=== PATIENT | female | born 1950 | race Caucasian/White ===

== ENCOUNTER 2024-06-26 20:34 | Observation (INO) | payer OTHER ==
[~2024-06-26] VITALS: Ht 160 cm; Wt 56.7 kg
[2024-06-26] MEDS: morPHINE 2 MG SYG IVP STA (21:34)
[2024-06-26] MEDS: ondanSETRON 4MG INJ IVP STA (21:34)
[2024-06-26 21:36] LABS: BASOPHILS # (AUTO) 0.02 K/uL (0.00-0.20); BASOPHILS % (AUTO) 0.1 % (0.0-5.0); EOSINOPHILS # (AUTO) 0.01 K/uL (0.00-0.70); EOSINOPHILS % (AUTO) 0.1 % (0.0-8.0); HEMATOCRIT 42.6 % (36-48); IMMATURE GRANULOCYTE ABSOLUTE 0.06 K/uL (0-1); LYMPHOCYTES # (AUTO) 0.7 K/uL (1.0-4.8); LYMPHOCYTES % (AUTO) 5.5 % (21.0-51.0); MEAN CORPUSCULAR HEMOGLOBIN 32.3 pg (27.0-33.0); MEAN CORPUSCULAR VOLUME 94.9 fL (79-99); MONOCYTES # (AUTO) 0.6 K/uL (0.1-1.0); MONOCYTES % (AUTO) 4.4 % (3.0-13.0); NEUTROPHILS % (AUTO) 89.5 % (40.0-77.0); PLATELET COUNT (AUTO) 345 K/uL (130-400); RED BLOOD CELL COUNT(AUTO) 4.49 MIL/uL (4.00-5.50); RED CELL DISTRIBUTION WIDTH 12.4 % (11.0-15.5); WHITE BLOOD COUNT (AUTO) 13.4 K/uL (4.8-10.8)
[2024-06-26 21:51] LABS: CREATININE 2.4 mg/dL (0.5-1.0); POTASSIUM 4.2 mmol/L (3.5-5.1)
[2024-06-26 21:56] LABS: ALBUMIN 4.6 g/dL (3.5-5.0); BILIRUBIN,TOTAL 0.7 mg/dL (0.2-1.0); TOTAL PROTEIN, SERUM 7.6 g/dL (6.0-8.3)
[2024-06-26] MEDS: 0.9%NACL 1000ML 1,000 ML IV ONE (23:44)
[2024-06-27] MEDS ORDERED: acetaMINOPHEN 325 MG TAB PO PRN
[2024-06-27] MEDS ORDERED: ALBUTEROL 0.083% 2.5 MG/3 ML INH IH PRN
[2024-06-27] MEDS ORDERED: LACTULOSE 20 GM/30 ML UDCUP PO PRN
[2024-06-27] MEDS ORDERED: LAbetaLOL 20MG SYG IV PRN
[2024-06-27] MEDS ORDERED: hydrALAZine 20MG/ML VIAL IV PRN
[2024-06-27 00:57] VITALS: O2SAT 96
[2024-06-27] MEDS: 0.9%NACL 1000ML 1,000 ML IV SCH (01:00)
[2024-06-27] MEDS: ondanSETRON 4MG INJ IVP PRN (01:00)
[2024-06-27] MEDS ORDERED: LISI10TA24 PO (01:13)
[2024-06-27] MEDS ORDERED: ATOR10 PO (01:13)
[2024-06-27 02:10] VITALS: BP 136/66; PULSE 90; RESP 20; TEMP 98.5
[2024-06-27 04:00] VITALS: BP 149/59; PULSE 87; RESP 20; TEMP 99.3
[2024-06-27 05:33] LABS: BASOPHILS # (AUTO) 0.02 K/uL (0.00-0.20); BASOPHILS % (AUTO) 0.2 % (0.0-5.0); HEMATOCRIT 35.6 % (36-48); IMMATURE GRANULOCYTE ABSOLUTE 0.08 K/uL (0-1); LYMPHOCYTES # (AUTO) 1.1 K/uL (1.0-4.8); LYMPHOCYTES % (AUTO) 8.5 % (21.0-51.0); MEAN CORPUSCULAR HEMOGLOBIN 31.9 pg (27.0-33.0); MEAN CORPUSCULAR HGB CONC 33.4 g/dL (32.0-36.0); MEAN CORPUSCULAR VOLUME 95.4 fL (79-99); MONOCYTES # (AUTO) 0.7 K/uL (0.1-1.0); MONOCYTES % (AUTO) 5.2 % (3.0-13.0); NEUTROPHILS % (AUTO) 85.5 % (40.0-77.0); PLATELET COUNT (AUTO) 278 K/uL (130-400); RED BLOOD CELL COUNT(AUTO) 3.73 MIL/uL (4.00-5.50); RED CELL DISTRIBUTION WIDTH 12.4 % (11.0-15.5); WHITE BLOOD COUNT (AUTO) 12.8 K/uL (4.8-10.8)
[2024-06-27 05:41] LABS: CREATININE 2.4 mg/dL (0.5-1.0); POTASSIUM 5.4 mmol/L (3.5-5.1)
[2024-06-27] MEDS: 0.9% NACL 250ML 250 ML IV ONE (06:11)
[2024-06-27 06:39] VITALS: PULSE 101; RESP 18; O2SAT 96
[2024-06-27 07:33] LABS: APPEARANCE,URINE CLOUDY (CLEAR); BILIRUBIN,URINE NEGATIVE (NEGATIVE); COLOR,URINE YELLOW (YELLOW); GLUCOSE, URINE (UA) NEGATIVE (NEGATIVE); KETONES,URINE 40 mg/dL (NEGATIVE); LEUKOCYTE ESTERASE ,URINE 75 Leu/uL (NEGATIVE); NITRATE,URINE NEGATIVE (NEGATIVE); OCCULT BLOOD,URINE NEGATIVE (NEGATIVE); PROTEIN,URINE 20 mg/dL (NEGATIVE)
[2024-06-27 07:41] LABS: ADD UA MICROSCOPIC YES
[2024-06-27 07:44] LABS: BACTERIA,URINE RARE /HPF (None Seen); HYALINE CASTS, URINE 26-50 /LPF (0-1 /LPF); MUCUS,URINE RARE LPF (None Seen); SQUAMOUS EPITHELIAL CELL,UR RARE /HPF (0-2); TRANSITIONAL EPI CELLS,URINE RARE /HPF (None Seen)
[2024-06-27 08:25] LABS: CREATININE 2.2 mg/dL (0.5-1.0); POTASSIUM 4.7 mmol/L (3.5-5.1)
[2024-06-27 11:43] VITALS: BP 146/74; PULSE 95; RESP 18; TEMP 98.4
[2024-06-27 15:20] VITALS: BP 150/66; PULSE 94; RESP 18; TEMP 97.6
[2024-06-27] MEDS: INSULIN humuLIN R 100 UNIT/ML 3ML SQ STA (17:26)
[2024-06-28] MEDS ORDERED: ENOXAPARIN SODIUM 40 MG/0.4 ML SYRINGE SQ SCH (09:00)
== END 2024-06-27 18:55 | disposition home or self-care (01) ==
LOC: EDH 20:34 → EDHIP 23:55 → 4CH 06-27 00:37
PROVIDERS: ADMIT Internal Medicine Critical Care Medicine; ATTEND Internal Medicine Critical Care Medicine
DX: M48.56XA Collapsed vertebra, not elsewhere classified, lumbar region, initial encounter for fracture (principal); N30.00 Acute cystitis without hematuria; N17.9 Acute kidney failure, unspecified; I12.9 Hypertensive chronic kidney disease with stage 1 through stage 4 chronic kidney disease, or unspecified chronic kidney disease; E11.22 Type 2 diabetes mellitus with diabetic chronic kidney disease; N18.9 Chronic kidney disease, unspecified; E11.65 Type 2 diabetes mellitus with hyperglycemia; E78.00 Pure hypercholesterolemia, unspecified; Z79.899 Other long term (current) drug therapy
CPT/HCPCS: 99285; 72131; 96374; 96375; 80053; 85025 ×2; 36415 ×2; 72100; 72128; 96361; 72148; 96376; 80048 ×2; 87086; 82948 ×4; 81001; 94664; G0378 ×19; J2270; J2405 ×2; J7030